=== PATIENT | female | born 1955 | race Caucasian/White ===

== ENCOUNTER 2023-03-15 08:03 | Outpatient (CLI) | payer MEDICARE, MEDICAID | END 2023-03-15 23:59 | disposition home or self-care (01) | LOC: RAD 08:03 | PROVIDERS: ATTEND Family Medicine | DX: R10.11 Right upper quadrant pain (principal) | CPT/HCPCS: 76700 ==

== ENCOUNTER 2024-12-24 08:29 | Outpatient (CLI) | payer MEDICARE, MEDICAID ==
--- NOTE | 2024-12-24 14:11 | RADIOLOGY REPORT ---
INDICATION: LOWER ABD PAIN TECHNIQUE: Multiple real-time sonographic images of the abdomen were obtained. COMPARISON: US ULTRASOUND OF ABDOMEN on DOS: 03/15/23 FINDINGS: Liver is homogenous in echogenicity. The liver measures 13.6 cm. No intrahepatic biliary ductal dilatation is noted. The gallbladder wall measures 0.1 cm and is unremarkable. No gallstones or gallbladder sludge. No pericholecystic fluid or edema. The common duct measures 0.3 cm and is unremarkable. The right kidney measures 10.7 cm. No hydronephrosis. The left kidney measures 10.5 cm. No hydronephr osis. The spleen measures 7.5 cm, within normal limits. The echogenicity is within normal limits. The pancreas is not well visualized due to obscuration from bowel gas. The visualized portions of the IVC and aorta are grossly unremarkable. IMPRESSION: Normal exam of the abdomen.
== END 2024-12-24 23:59 | disposition home or self-care (01) ==
LOC: US 08:29
PROVIDERS: ATTEND Family Medicine
DX: R10.30 Lower abdominal pain, unspecified (principal); R93.2 Abnormal findings on diagnostic imaging of liver and biliary tract
CPT/HCPCS: 76700

== ENCOUNTER 2025-05-20 10:44 | Outpatient (CLI) | payer MEDICARE, MEDICAID ==
[~2025-05-20 10:44] MED LIST: ERGO400T7 PO; EST1T PO; METO-411 PO; PANT40TA54 PO
--- NOTE | 2025-05-20 11:40 | RADIOLOGY REPORT ---
EXAM: CT CT CHEST LOW DOSE HISTORY: NICOTINE DEPENDENCE, CIGARETTES, LDCT COMPARISON: Chest x-ray dated 01/03/2025. TECHNIQUE: Noncontrast helical CT images of the chest were performed utilizing low dose lung cancer screening protocol. Sagittal and coronal reformatted images were obtained. This CT exam was performed using one or more of the following dose reduction techniques: Automated exposure control, adjustment of the mA and/or kV according to patient size, or use of iterative reconstruction technique. Radiation Dose: CT Dose: CTDI volume is 1.87 mGy. Dose-length product is 63.65 mGy*cm FINDINGS: There is a 3 mm juxtapleural right lower lobe noncalcified pulmonary nodule (image 60, series 4). There is a 2.6 mm left upper lobe noncalcified pulmonary nodule (image 44, series 4). There is a 2.5 mm left lower lobe juxtapleural noncalcified pulmonary nodule anteriorly (image 85, series 4). There is a 4.5 mm left lower lobe noncalcified pulmonary nodule (image 91, series 4). There is a right upper lobe 3.5 mm triangular noncalcified pulmonary nodule (image 41, series 4). There is mild scarring in the lung bases, greater on the right. No other infiltrates, pneumothorax, pleural effusions, or pulmonary edema. No suspicious mediastinal or axillary adenopathy. The heart is not enlarged. There are coronary artery calcifications. No thoracic aortic aneurysm. There is borderline ectasia of the central pulmonary arteries. There is thoracic dextroscoliosis. There is [id number] thoracic degenerative disc disease. IMPRESSION: 1. Subcentimeter noncalcified pulmonary nodules in both lungs as detailed above, the largest of which is in the left lower lobe measuring 4.5 mm. 2. Coronary artery disease. 3. Thoracic spondylosis and dextroscoliosis. Lung-RADS 2. Benign. Continue annual screening with LDCT in 12 months. Lung-RADS v2022.
== END 2025-05-20 23:59 | disposition home or self-care (01) ==
LOC: RAD 10:44
PROVIDERS: ATTEND Nurse Practitioner Family
DX: Z12.2 Encounter for screening for malignant neoplasm of respiratory organs (principal); F17.210 Nicotine dependence, cigarettes, uncomplicated; R91.8 Other nonspecific abnormal finding of lung field; I25.10 Atherosclerotic heart disease of native coronary artery without angina pectoris; M41.84 Other forms of scoliosis, thoracic region; M51.34 Other intervertebral disc degeneration, thoracic region; M47.814 Spondylosis without myelopathy or radiculopathy, thoracic region
CPT/HCPCS: 71271